=== PATIENT | female | born 1995 | race African-American/Black ===

== ENCOUNTER 2020-02-13 17:38 | Emergency (ER) | payer MEDICAID ==
[~2020-02-13] VITALS: Ht 165.1 cm; Wt 102.3 kg
[2020-02-13 17:41] VITALS: TEMP 98.1
[2020-02-13 19:00] VITALS: BP 110/71; PULSE 83
== END 2020-02-13 19:00 | disposition home or self-care (01) ==
LOC: COL.ER 17:38
DX: L25.9 Unspecified contact dermatitis, unspecified cause (principal); F17.210 Nicotine dependence, cigarettes, uncomplicated; W57.XXXA Bitten or stung by nonvenomous insect and other nonvenomous arthropods, initial encounter